=== PATIENT | female | born 2000 | race African-American/Black ===

== ENCOUNTER 2024-07-23 08:54 | Emergency (ER) | payer MEDICAID ==
[~2024-07-23] VITALS: Ht 154.9 cm; Wt 76.2 kg
[2024-07-23 09:10] VITALS: BP 124/88; PULSE 78; RESP 16; TEMP 98.2; O2SAT 99
[2024-07-23] MEDS ORDERED: ACETAMINOPHEN 325MG TABLET PO STA (09:10)
[2024-07-23 09:47] LABS: CARBON DIOXIDE 21 mEq/L (21-32); CHLORIDE 109 mEq/L (98-107); POTASSIUM 3.9 mEq/L (3.5-5.1); SODIUM 136 mEq/L (136-145)
[2024-07-23 09:48] LABS: CALCIUM 8.5 mg/dL (8.7-10.4)
[2024-07-23 09:52] LABS: CREATININE 0.7 mg/dL (0.6-1.0)
[2024-07-23 09:53] LABS: GLUCOSE 80 mg/dL (70-105); UREA NITROGEN BLOOD 6 mg/dL (9-23)
[2024-07-23 09:54] LABS: ALANINE AMINOTRANSFERASE < 7 IU/L (10-49); ASPARTATE AMINOTRANSFERASE 16 IU/L (<34)
[2024-07-23 09:55] LABS: ALBUMIN 3.6 g/dL (3.2-4.8); BILIRUBIN DIRECT 0.1 mg/dL (<=3.0); BILIRUBIN TOTAL 0.6 mg/dL (0.1-1.0); PROTEIN TOTAL 6.4 g/dL (6.0-8.3)
[2024-07-23 10:01] LABS: BASOPHILS % 0.2 % (0.0-2.0); DIFFERENTIAL COMMENT 0; EOSINOPHILS % 1.6 % (0.0-5.0); HEMATOCRIT. 33.3 % (36.0-48.0); HEMOGLOBIN. 10.4 g/dL (12.0-16.0); LYMPHOCYTES % 25.2 % (20.0-50.0); MEAN CORPUSCULAR HEMOGLOBIN 22.7 pg (28.0-32.0); MEAN CORPUSCULAR HGB CONC 31.2 g/dL (31.0-37.0); MEAN CORPUSCULAR VOLUME 72.8 fL (81.0-99.0); MEAN PLATELET VOLUME 8.8 fl (7.4-10.4); MONOCYTES % 8.2 % (2.0-8.0); NEUTROPHILS % 64.8 % (40.0-76.0); PLATELET 202 x1000/uL (130-400); RED BLOOD CELL COUNT 4.57 mill/uL (4.2-5.4); RED CELL DISTRIBUTION WIDTH 16.7 % (11.6-14.6); WHITE BLOOD COUNT 5.7 x1000/uL (4.5-11.0)
[2024-07-23] MEDS ORDERED: ACET-2708 MT (11:25)
== END 2024-07-23 11:50 | disposition home or self-care (01) ==
LOC: ER 09:04
DX: O26.893 Other specified pregnancy related conditions, third trimester (principal); Z3A.36 36 weeks gestation of pregnancy
CPT/HCPCS: 36415; 80048; 80076; 85025; 99283